=== PATIENT | female | born 1950 | race Caucasian/White ===

== ENCOUNTER 2017-10-29 18:46 | Emergency (ER) | payer OTHER, MEDICARE ==
[2017-10-29 19:02] VITALS: TEMP 97.8; BMI 35.4
--- NOTE | 2017-10-29 19:12 | PDOC ---
History of Present Illness - General History Source: Patient, Family Exam Limitations: No Limitations - History of Present Illness Initial Comments: The patient is a 67 year old female with no significant PMH who presents to the emergency department complaining of a reported fish bone stuck in her throat during dinner at 6:15pm. The patient reports "carelessly eating fish (Branzino) " when she felt a pain in her throat after swallowing. The patient reports throat pain is apparent when swallowing and at rest. She denies any previous episodes of discomfort in her throat, dysphagia, or esophageal foreign body. The patient denies chest pain, shortness of breath, headache, and dizziness. Denies fevers, chills, nausea, vomiting, diarrhea, and constipation. Denies dysuria, frequency, urgency, and hematuria. Denies any other kinds of injury. Allergies: NKA Past surgical history: Colonoscopy Social history: Occasional alcohol consumption. No reported cigarette or drug use. PCP: Dr. Mejia <Haily Lenz - Last Filed: 10/29/17 20:44> <Lisa Seth - Last Filed: 10/30/17 02:18> - General Chief Complaint: Foreign Body (FB) Stated Complaint: fish bone stuck in throat Time Seen by Provider: 10/29/17 19:10 Past History <Haily Lenz - Last Filed: 10/29/17 20:44> - Past Medical History COPD: No Other medical history: pt denies - Suicide/Smoking/Psychosocial Hx Smoking History: Never smoked Hx Alcohol Use: No Drug/Substance Use Hx: No Substance Use Type: None <Lisa Seth - Last Filed: 10/30/17 02:18> - Past Medical History Allergies/Adverse Reactions: Allergies Allergy/AdvReac Type Severity Reaction Status Date / Time No Known Allergies Allergy Verified 10/29/17 18:48 Home Medications: Ambulatory Orders NK [No Known Home Medication] 10/29/17 Review of Systems - Review of Systems Able to Perform ROS?: Yes Comments:: All systems are reviewed and negative except as noted in the HPI. <Haily Lenz - Last Filed: 10/29/17 20:44> *Physical Exam - Vital Signs Last Vital Signs Temp Pulse Resp BP Pulse Ox 97.8 F 118 H 18 192/115 99 10/29/17 18:47 10/29/17 18:47 10/29/17 18:47 10/29/17 18:47 10/29/17 18:47 - Physical Exam Comments: GENERAL: The patient is awake, alert, and fully oriented, in no acute distress. HEAD: Normal with no signs of trauma. EYES: Pupils equal, round and reactive to light, extraocular movements intact, sclera anicteric, conjunctiva clear. ENT: Ears normal, nares patent, oropharynx clear without exudates. Moist mucous membranes. NECK: Normal range of motion, supple without lymphadenopathy, JVD, or masses. LUNGS: Breath sounds equal, clear to auscultation bilaterally. No wheezes, and no crackles. HEART: Regular rate and rhythm, normal S1 and S2 without murmur, rub or gallop. ABDOMEN: Soft, nontender, normoactive bowel sounds. No guarding, no rebound. No masses. EXTREMITIES: Normal range of motion, no edema. No clubbing or cyanosis. No cords , erythema, or tenderness. PSYCH: Normal mood, normal affect. SKIN: Warm, Dry, normal turgor, no rashes or lesions noted. <Haily Lenz - Last Filed: 10/29/17 20:44> - Vital Signs Last Vital Signs Temp Pulse Resp BP Pulse Ox 97.8 F 118 H 18 192/115 99 10/29/17 18:47 10/29/17 18:47 10/29/17 18:47 10/29/17 18:47 10/29/17 18:47 <Lisa Seth - Last Filed: 10/30/17 02:18> ED Treatment Course - LABORATORY CBC & Chemistry Diagram: 10/29/17 19:41 10/29/17 19:41 <Haily Lenz - Last Filed: 10/29/17 20:44> - LABORATORY CBC & Chemistry Diagram: 10/29/17 19:41 10/29/17 19:41 <Lisa Seth - Last Filed: 10/30/17 02:18> Medical Decision Making - Medical Decision Making Documentation has been prepared under my direction and personally reviewed by me in its entirety. I attest that this documented accurately reflects all work, treatment, procedures and medical decision making performed by me. As noted above, this 67-year-old woman with a no significant past medical history presents with foreign body sensation in her throat that began as she was eating fish. Exam is unremarkable. In order to evaluate for foreign body that is possibly radiolucent, soft tissue CT of the neck with IV contrast was performed (chemistry profile/CBC/INR was evaluated; creatinine was normal and rest of the laboratory evaluation is essentially without abnormalities) Just prior to performance of the CT, the patient coughed and suddenly had no further pain/foreign body sensation in her throat. The study was performed anyway in order to evaluate for retained foreign body or any other abnormality in the area. CT as interpreted by Dr. Ordaz of the radiology staff: No evidence of foreign body or other acute abnormalities. The patient had significant hypertension/tachycardia on presentation. This was thought to be physiologic secondary to her pain and acute distress However, repeat measurement of the blood pressure after pain had resolved showed persistent hypertension with measurement of 189/102. Heart rate was also was somewhat elevated also at 105/minute. The importance of follow-up with her PMD, Dr. Mejia was emphasized to the patient. Patient states because of observance of the [facility] tomorrow, she would be unable to follow up until November 02. She promised that she would follow-up with her PMD then. She should return to the emergency room if she has any chest pain/ shortness of breath/headache. Also, if she has any severe dysphagia/ odontophagia. She was also given referral information for ENT group: Dr. Simental [facility], with whom she should follow-up if she has any persistent mild difficulties associated with swallowing. <Lisa Seth - Last Filed: 10/30/17 02:18> *DC/Admit/Observation/Transfer - Attestations Scribe Attestion: Documentation prepared by Haily Lenz, acting as medical nurse for Lisa Seth MD. <Haily Lenz - Last Filed: 10/29/17 20:44> <Lisa Seth - Last Filed: 10/30/17 02:18> Diagnosis at time of Disposition: History of foreign body ingestion - Discharge Dispostion Disposition: HOME Condition at time of disposition: Stable - Referrals Referrals: Wicho Simental MD [Staff Physician] - - Patient Instructions Printed Discharge Instructions: DI for Foreign Body, Swallowed-Adult Additional Instructions: Soft diet Return to ER if you have any further pain in your throat Follow-up with your general doctor within the next 3-4 days Follow-up with Dr. Simental (ENT) group if you have any residual throat discomfort/ difficulty swallowing
[2017-10-29 20:16] LABS: BASO % 0.7 % (0-2.0); EOS % 1.8 % (0-4.5); HEMATOCRIT 44.5 % (32.4-45.2); HEMOGLOBIN 15.7 GM/dl (10.7-15.3); LYMPH % 30.5 % (8-40); MCHC 35.3 g/dl (32.0-36.0); MEAN CELL VOLUME 88.1 fl (80-96); MEAN PLT VOLUME 7.9 fl (7.5-11.1); MONO % 6.3 % (3.8-10.2); NEUT % 60.7 % (42.8-82.8); PLATELET COUNT 356 K/MM3 (134-434); RBC 5.06 M/mm3 (3.60-5.2); RDW 12.7 % (11.6-15.6); WHITE BLOOD COUNT 9.2 K/mm3 (4.0-10.8)
[2017-10-29 20:29] LABS: INR 0.98 (0.82-1.09)
[2017-10-29 20:30] LABS: ALBUMIN 4.4 g/dl (3.5-5.0); ALK PHOS 80 U/L (32-92); ANION GAP 5 (8-16); BLOOD UREA NITROGEN 14 mg/dl (7-18); CALCIUM 8.9 mg/dl (8.4-10.2); CHLORIDE 104 mmol/L (98-107); CO2 31 mmol/L (22-28); GLUCOSE,RANDOM 154 mg/dl (74-106); POTASSIUM 4.1 mmol/L (3.5-5.1); SGOT/AST 20 U/L (10-42); SGPT/ALT 17 U/L (10-40); SODIUM 140 mmol/L (136-145); TOT PROT 7.3 g/dl (6.4-8.3)
[2017-10-29 20:41] LABS: CREATININE < 0.8 mg/dl (0.6-1.3)
[2017-10-29 21:56] VITALS: BP 189/102; PULSE 105
== END 2017-10-29 21:59 | disposition home or self-care (01) ==
LOC: FER 18:46
DX: R09.89 Other specified symptoms and signs involving the circulatory and respiratory systems (principal)
CPT/HCPCS: 36415; 70491-TC; 80053; 85025; 85610; 99282-25

== ENCOUNTER 2022-11-06 08:09 | Day surgery (SDC) | payer OTHER, MEDICARE ==
[2022-11-03 16:44] VITALS: BMI 34.7
[2022-11-06 08:35] VITALS: RESP 18
[2022-11-06 10:03] VITALS: TEMP 97.8
[2022-11-06 10:15] VITALS: BP 140/72; PULSE 75
== END 2022-11-06 10:22 | disposition home or self-care (01) ==
LOC: FASU-ENDO 08:09
PROVIDERS: ATTEND Internal Medicine Gastroenterology
PROC: 0DBH8ZX Excision of Cecum, Via Natural or Artificial Opening Endoscopic, Diagnostic (ICD-10-PCS; principal; 2022-11-06 09:19)
DX: Z12.11 Encounter for screening for malignant neoplasm of colon (principal); D12.0 Benign neoplasm of cecum; K57.30 Diverticulosis of large intestine without perforation or abscess without bleeding
CPT/HCPCS: 88305-TC

== ENCOUNTER 2023-11-19 07:47 | Day surgery (SDC) | payer OTHER, MEDICARE ==
[2023-11-12 09:14] VITALS: BMI 35.4
[2023-11-19 09:22] VITALS: TEMP 97
[2023-11-19 09:50] VITALS: RESP 18
[2023-11-19 09:51] VITALS: BP 151/81; PULSE 90
== END 2023-11-19 09:57 | disposition home or self-care (01) ==
LOC: FASU-ENDO 07:47
PROVIDERS: ATTEND Internal Medicine Gastroenterology
PROC: 0DJD8ZZ Inspection of Lower Intestinal Tract, Via Natural or Artificial Opening Endoscopic (ICD-10-PCS; principal; 2023-11-19 09:01)
DX: Z12.11 Encounter for screening for malignant neoplasm of colon (principal); K57.30 Diverticulosis of large intestine without perforation or abscess without bleeding; Z86.010 Personal history of colon polyps